=== PATIENT | male | born 1995 | race Hispanic/Latino ===

== ENCOUNTER 2016-09-19 11:23 | Emergency (ER) | payer OTHER ==
[~2016-09-19] VITALS: Ht 170.2 cm; Wt 102.3 kg
[~2016-09-19 11:23] MED LIST: IBUP-1152 PO; [UNRECOGNIZED DRUG - OTHER] PO
[2016-09-19 11:28] VITALS: BP 156/81; PULSE 89; RESP 14; O2SAT 98
--- NOTE | 2016-09-19 11:47 | ED.REPORT ---
HPI-Psychiatric Illness Date of Service Sep 19, 2016 ED Provider: History of Present Illness: family brought him to ER sister called him lazy worthless and a loser and told him to kill himself . Thinks they are true, no plan to kill self. Is willing to be admitted. no etoh or drugs at present. primary care is seamar. Work at the [employer]. Nursing Notes Stated Complaint: PSYCH Chief Complaint: Psychiatric Complaint Nursing Notes Reviewed: Yes Allergies: Coded Allergies: No Known Allergies (Unverified , 09/30/11) Scheduled Acetaminophen/Cod-Expunged Drug, Do Not Renew (Tylenol/Codeine #3-Expunged Drug , Do Not Heraclio) 1 Ea Tablet 1-2 TAB PO Q4HP IBUPROFEN-Expunged Drug, Do Not Renew! (IBUPROFEN-Expunged Drug, Do Not Renew!) 800 Mg Tablet 800 MG PO TID INSTRUCTED TO STOP General Time Seen by MD: 11:46 Chief Complaint Suicidal ideation Risk-Psychiatric Illness Suicide Risk Stratification Suicide Risk Factors - Adult: : Previous attempt (7 years ago with pills)No: Access to firearms, Alcohol use, Close associate suicide, Family Hx of Suicide, Prior psych admission, Substance abuse RF Statements: Risk factors reviewed Past Medical History Past Medical History Denies: Asthma Past Surgical History knee Reports: Appendectomy Smoking History Never Smoker Social History Alcohol Use: Denies alcohol use Drug Use: Denies drug use Occupation lives with family, parents, 5 sisters and 1 nephew 09/19/2016 Ambulatory Status Independent Review of Systems Basic Review of Systems Eyes: Vision NL, No discharge Hematologic: No bleeding, No bruising Allergy / Immune: No allergy Physical Exam Initial Vital Signs Vital Signs (First) Date Time Temp Pulse Resp B/P Pulse Ox O2 Delivery O2 Flow Rate FiO2 09/19/16 11:28 36.6 89 14 156/81 98 Room Air Initial VS: Reviewed, Vital signs normal Head / Eyes: Atraumatic, Normocephalic, PERRL ENT: Mucous membranes moist, Conjunctiva normal, No scleral icterus Neck: Supple, Non-tender, Full range of motion Respiratory: Breath sounds normal, Clear to auscultation, No respiratory distress Cardiovascular: Regular rate & rhythm, Heart sounds normal, Intact distal pulses Abdomen / GI: Soft, Non-tender, No guarding, No rebound, No distention Back: No CVA tenderness Lymphatic: No lymphadenopathy Extremities: Vascular intact, Neuro intact, No swelling, No tenderness Skin: Warm, Dry, No cyanosis General/Constitutional: Awake, Alert, No acute distress, Well appearing, Well developed, Well hydrated Neurologic: Oriented X3, Speech NL, No motor deficits Psychiatric: Affect NL, Mood NL, Not suicidal, Judgment/insight NL, Thought content NL Respiratory / Chest: Atraumatic, Breath sounds NL, Breath sounds = bilat, No respiratory distress Cardiovascular: Heart rate NL, Regular rhythm, Heart sounds NL Interpretation & Diagnostics Lab Results Interpretation Result Diagram: 09/19/16 1238 09/19/16 1238 Test 09/19/16 12:36 09/19/16 12:38 Hold Urine Received (Received) White Blood Count 7.0th/mm3 (3.8-10.1) Red Blood Count 5.46mil/mm3 (4.40-5.80) Hemoglobin 15.6g/dL (13.8-17.2) Hematocrit 44.9% (41.0-50.0) Mean Corpuscular Volume 82.2fL (81-100) Mean Corpuscular Hemoglobin 28.6pg (27.0-35.0) Mean Corpuscular Hemoglobin Concent 34.7% (32.0-37.0) Red Cell Distribution Width 13.4% (12.3-15.4) Platelet Count 244bil/L (150-400) Neutrophils (%) (Auto) 65.9% (40-74) Lymphocytes (%) (Auto) 22.1% (14-46) Monocytes (%) (Auto) 10.7% (4-12) Eosinophils (%) (Auto) 0.9% (0-5) Basophils (%) (Auto) 0.3% (0-3) Sodium Level 140mEq/L (134-144) Potassium Level 4.4mEq/L (3.5-5.2) Chloride Level 105mEq/L (97-108) Carbon Dioxide Level 23mmol/L (18-29) Blood Urea Nitrogen 11mg/dL (6-20) Creatinine 0.79mg/dL (0.76-1.27) Estimat Glomerular Filtration Rate 132mL/min (>59) Glucose Level 130mg/dL (60-99) Calcium Level 9.0mg/dL (8.5-10.1) Total Bilirubin 0.3mg/dL (0.0-1.2) Aspartate Amino Transf (AST/SGOT) 18U/L (0-50) Alanine Aminotransferase (ALT/SGPT) 30U/L (0-44) Alkaline Phosphatase 70U/L (25-150) Total Protein 7.3g/dL (6.4-8.4) Albumin 4.4g/dL (3.4-5.0) Thyroid Stimulating Hormone (TSH) 0.676uIU/mL (0.450-4.500) Hold Fontaine Top Tube Received (Received) Re-Eval/Medical Decision Med Decision/Clinical Course consult with [facility]. Patient improved. family has been visiting, sister has apologized. Patient feels safe to go home Discharge & Departure Impression: Primary Impression: Acute situational disturbance Disposition: Home Additional Instructions: Your labs and TSH are normal. You have spoken with the [facility] and your family and you feel you can be safe at home. [facility] is working on getting you connected for counseling. Please return if you feel unsafe in any way. Referrals: Montse Forman MD (PCP) EDSupervising Provider for [facility]: Ryan Simmons DO copies to: Montse Forman MD, Sue ARNP Sep 19, 2016 11:47
[2016-09-19 12:50] LABS: BASOPHILS % (AUTO) 0.3 % (0-3); EOSINOPHILS % (AUTO) 0.9 % (0-5); MONOCYTES % (AUTO) 10.7 % (4-12); Mean Corpuscular Hemoglobin 28.6 pg (27.0-35.0); Mean Corpuscular Volume 82.2 fL (81-100); NEUTROPHILS % (AUTO) 65.9 % (40-74); Platelet Count 244 bil/L (150-400)
== END 2016-09-19 16:14 | disposition home or self-care (01) ==
LOC: SED 11:23
DX: F43.0 Acute stress reaction (principal)